=== PATIENT | male | born 1970 | race Caucasian/White ===

== ENCOUNTER 2017-08-09 13:33 | Emergency (ER) | payer MEDICAID ==
[~2017-08-09] VITALS: Ht 162.6 cm; Wt 75.0 kg
[~2017-08-09 13:33] MED LIST: TRAM50TA2 PO
[2017-08-09 13:40] VITALS: Ht 162.6 cm; Wt 75.0 kg
[2017-08-09] MEDS ORDERED: BACI28.34 TOP (14:38)
[2017-08-09] MEDS ORDERED: IBUP-1542 PO (14:38)
--- NOTE | 2017-08-09 18:51 | ERD ---
ER Documentation Chief Complaint Chief Complaint NOSE BLEED X3 DAYS HPI Patient is a 47-year-old male presenting to the emergency department with complaints of head to toe full body pain and epistaxis intermittently for the past 3 days. Body pain has been present intermittently for 2 weeks. He denies any focal chest pain or pressure, he denies shortness of breath with exertion, he denies dizziness, headaches, nausea, vomiting, diarrhea, and other symptoms currently. He is not actively bleeding from his nose currently. Symptoms are mild in severity. ROS All systems reviewed and are negative except as per history of present illness. Medications Home Meds Active Scripts Ibuprofen* (Motrin*) 600 Mg Tab, 600 MG PO Q6, #20 TAB Prov:YASIR ESTES PA-C 08/09/17 Bacitracin* (Bacitracin Zinc Oint*) 28.35 Gm Oint, 1 APPLIC TOP BID, #1 TUB APPLI TO Prov:YASIR ESTES PA-C 08/09/17 Tramadol HCl (Tramadol HCl) 50 Mg Tablet, 50 MG PO Q4 Y for PAIN, #20 TAB Prov:SOURAV SOARES 09/03/16 Allergies Allergies: Coded Allergies: No Known Drug Allergy (Verified Allergy, Unknown, 09/03/16) PMhx/Soc History of Surgery: No Anesthesia Reaction: No Hx Neurological Disorder: No Hx Respiratory Disorders: No Hx Cardiac Disorders: Yes (HTN) Hx Psychiatric Problems: No Hx Miscellaneous Medical Probl: Yes (torn right meniscus) Hx Alcohol Use: Yes (10 beers/day) Hx Substance Use: No Hx Tobacco Use: No Smoking Status: Never smoker Physical Exam Vitals Physical Exam Const: Nontoxic, well-appearing male in no acute distress. Head: Atraumatic Eyes: Normal Conjunctiva ENT: Normal External Ears, Nose and Mouth. Dried blood noted to the anterior nares bilaterally. No active bleeding currently. No bleeding noted to the posterior pharynx. Neck: Full range of motion..~ No meningismus. Resp: Clear to auscultation bilaterally Cardio: Regular rate and rhythm, no murmurs. There is some reproducible chest wall tenderness palpation noted to the left chest. Skin: No petechiae or rashes Back: No midline or flank tenderness Ext: No cyanosis, or edema Neur: Awake and alert Psych: Normal Mood and Affect Procedures/MDM 47-year-old male presents to the emergency department with complaints of head to toe body pain and epistaxis intermittently. There is some dried blood noted to the anterior nares bilaterally, no blood seen in the posterior pharynx. No active bleeding currently. Patient did have some reproducible chest pain to palpation, consistent with his full body pain. An EKG was obtained due to his complaints but there is no evidence of acute coronary ischemia. Patient's full body pain may be consistent with influenza, or non-concerning myalgias. The patient was advised to keep turbinates moist. He was given a prescription for bacitracin to apply. He was also given a prescription for ibuprofen for full body pain. No evidence for life-threatening pathology at time of discharge. Patient was stable for discharge with a prescription for ibuprofen and bacitracin. EKG: Reviewed by attending ED physician. Rate/Rhythm: Normal sinus rhythm with a rate of 96 bpm. QRS, ST, T-waves: No changes consistent w/ acute ischemia Impression: No evidence of ischemia or arrhythmia Pt/family in agreement with discharge plan/diagnosis. Pt/family advised to return immediately with any new or worsening symptoms. Follow-up with primary care physician within the next 1-2 days. Disclaimer: Inadvertent spelling and grammatical errors are likely due to EHR/ dictation software use and do not reflect on the overall quality of patient care. Also, please note that the electronic time recorded on this note does not necessarily reflect the actual time of the patient encounter. Departure Diagnosis: Primary Impression: Epistaxis Additional Impression: Myalgia Condition: Fair Patient Instructions: Epistaxis (Adult), Myalgias Referrals: [facility] () Usted se rojas hecho un examen mdico de control que le indica que no est en jaqui condicin que requiera tratamiento urgente en el Departamento de Emergencia. Un estudio ms profundo y el tratamiento de kirk condicin pueden esperar sin ningn riesgo hasta que usted sea atendida/o en el consultorio de kirk mdico o jaqui cl asha. Es responsabilidad suya arreglar jaqui grfifin para el seguimiento del arlen. MANEJO DE CONDICIONES NO URGENTES EN EL FUTURO 1) Si usted tiene un mdico de atencin primaria: Usted debera llamar a kirk mdico de atencin primaria antes de venir al departamento de emergencia. Despus de las horas de consultorio, kirk doctor o kirk asociado/a est disponible por telfono. El mdico o enfermero de gisselle en el servicio telefnico puede asesorarle por laya medio para atender el problema, o arlen contrario se puede programar jaqui griffin. 2) Si usted no tiene un mdico de atencin primaria: Llame al mdico o clnica de referencia que aparece abajo patrice las horas de consultorio para hacer jaqui griffin para que le vean. CLINICAS: [facility] [phone] [facility] [phone] [facility] [phone] [address] [facility] [phone] [address] [facility]. [facility] [phone] [address] [facility] [phone] [address] Additional Instructions: No mas mejor en 2-3 spence, regresar. Mas peor en 24 horas, regresear rapidamente. Ir a doctor primario en 1-2 spence. Usar instrucciones cuando mike medicamento. YASIR ESTES PA-C Aug 09, 2017 18:51
== END 2017-08-09 15:25 | disposition home or self-care (01) ==
LOC: FTE 13:33
DX: R04.0 Epistaxis (principal); M79.1 Myalgia; I10 Essential (primary) hypertension; R07.9 Chest pain, unspecified
CPT/HCPCS: 93005; Z7502

== ENCOUNTER 2017-12-12 17:36 | Emergency (ER) | END 2017-12-12 19:00 | disposition home or self-care (01) ==

== ENCOUNTER 2017-12-25 09:53 | Emergency (ER) | END 2017-12-25 13:09 | disposition home or self-care (01) ==

== ENCOUNTER 2018-02-28 07:34 | Emergency (ER) | END 2018-02-28 09:27 | disposition home or self-care (01) ==

== ENCOUNTER 2018-08-30 15:09 | Emergency (ER) | END 2018-08-30 17:49 | disposition home or self-care (01) ==

== ENCOUNTER 2019-01-24 09:23 | Emergency (ER) | payer MEDICAID ==
[~2019-01-24] VITALS: Ht 152.4 cm; Wt 79.8 kg
[~2019-01-24 09:23] MED LIST changes: +AMOX500C2 PO; +BACI28.34 TOP; +HYDR-4011 PO; +IBUP-1542 PO; +NAPR-985 PO; +POLY10DR BOTH EYES; +PROM5SYR2 PO
[2019-01-24 10:07] VITALS: Ht 152.4 cm; Wt 79.8 kg
[2019-01-24] MEDS ORDERED: FAMOTIDINE 20 MG INJ IV STA (11:03)
[2019-01-24] MEDS ORDERED: LIDOCAINE/MYLANTA 40 ML BTL PO STA (11:03)
[2019-01-24] MEDS ORDERED: AMLO5TAB4 PO (12:10)
[2019-01-24] MEDS ORDERED: METF-849 PO (12:10)
--- NOTE | 2019-01-24 12:17 | ERD ---
ER Documentation Chief Complaint Chief Complaint 1) LT EAR PAIN X1 WEEK 2) HTN (RAN OUT OF ANTI-HTN MEDS) 3) DYSURIA HPI During the patient's encounter translation services were utilized Language: English Source: In person 48-year-old gentleman history of hypertension who presents the emergency room with multiple different complaints over a 1-2-month timeframe. He states over the last 2 months he has been having elevated blood pressure and has been noncompliant with his medication for at least 1 month. He is occasionally everton cribing some mild discomfort and urinary frequency. He denies any fevers or chills. Occasionally is having chest discomfort that is nonexertional left- sided and slightly worse to touch. He described at triage left ear pain but denies any left ear pain currently. Patient states that he has been drinking alcohol more frequently. He denies any hematemesis or melena. He is concerned because he is feeling generally weak and would like to have an evaluation. ROS All systems reviewed and are negative except as per history of present illness. Medications Home Meds Active Scripts Amlodipine Besylate* (Norvasc*) 5 Mg Tablet, 5 MG PO DAILY for 30 Days, TAB Prov:THUAN ROSADO MD 01/24/19 Metformin* (Glucophage*) 500 Mg Tab, 500 MG PO BID for 30 Days, TAB Prov:THUAN ROSADO MD 01/24/19 Naproxen* (Naprosyn*) 500 Mg Tablet, 500 MG PO BID PRN for PAIN AND/OR INFLAMMATION, #30 TAB Prov:LYNN BOSCH NP 08/30/18 Hydrocodone/Acetaminophen ([place] 5-325 Tablet) 1 Each Tablet, 1 EACH PO Q6 for SEVERE PAIN LEVEL 7-10, #7 TAB Prov:VERNON ALEGRE DO 12/25/17 Polymyxin/Trimethoprim* (Polytrim* Eye Drops) 10 Ml Drops, 1 DROP BOTH EYES Q3H, #1 BOTTLE Prov:VERNON ALEGRE DO 12/25/17 Ibuprofen* (Motrin*) 600 Mg Tab, 600 MG PO Q8 PRN for PAIN AND OR ELEVATED TEMP, #12 TAB Prov:KAELYN PÉREZ MD 12/12/17 Promethazine HCl/Codeine (Prometh-Codein 6.25-10 mg/5 ml) 5 Ml Syrup, 5 ML PO BID for COUGH, #120 ML Prov:KAELYN PÉREZ MD 12/12/17 Amoxicillin* (Amoxicillin*) 500 Mg Cap, 500 MG PO TID for 7 Days, CAP Prov:KAELYN PÉREZ MD 12/12/17 Ibuprofen* (Motrin*) 600 Mg Tab, 600 MG PO Q6, #20 TAB Prov:YASIR ESTES PA-C 08/09/17 Bacitracin* (Bacitracin Zinc Oint*) 28.35 Gm Oint, 1 APPLIC TOP BID, #1 TUB APPLI TO Prov:YASIR ESTES PA-C 08/09/17 Tramadol HCl (Tramadol HCl) 50 Mg Tablet, 50 MG PO Q4 PRN for PAIN, #20 TAB Prov:SOURAV SOARES 09/03/16 Allergies Allergies: Coded Allergies: No Known Drug Allergy (Verified Allergy, Unknown, 12/12/17) PMhx/Soc History of Surgery: No Anesthesia Reaction: No Hx Neurological Disorder: No Hx Respiratory Disorders: No Hx Cardiac Disorders: Yes (HTN) Hx Psychiatric Problems: No Hx Miscellaneous Medical Probl: Yes (torn right meniscus, DM) Hx Alcohol Use: No (DRINKS "MANY" BEERS 5X/WEEK) Hx Substance Use: No Hx Tobacco Use: No Smoking Status: Never smoker FmHx Family History: No diabetes Physical Exam Vitals Vital Signs Date Temp Pulse Resp B/P (MAP) Pulse Ox O2 O2 Flow FiO2 Time Delivery Rate 01/24/19 68 17 175/105 96 Room Air 10:20 (128) 01/24/19 99.7 78 16 193/112 98 10:07 (139) Physical Exam General: Well developed, well nourished, no acute distress Head: Normocephalic, atraumatic. Eyes: Pupils equally reactive, EOM intact ENT: Moist mucous membranes Neck: Supple, no lymphadenopathy Respiratory: Lungs clear bilaterally, no distress Cardiovascular: RRR, no murmurs, rubs, or gallops Abdominal: Soft, non-tender, non-distended, no peritoneal signs : Deferred MSK: No edema, no unilateral swelling, 5/5 strength Neurologic: Alert and oriented, moving all extremities, normal speech, no focal weakness, no cerebellar signs Skin: No rash Psych: Normal mood Result Diagram: 01/24/19 1038 01/24/19 1038 Results 24 hrs Laboratory Tests Test 01/24/19 10:38 01/24/19 11:10 White Blood Count 8.4 10^3/ul Red Blood Count 4.99 10^6/ul Hemoglobin 14.9 g/dl Hematocrit 44.0 % Mean Corpuscular Volume 88.2 fl Mean Corpuscular Hemoglobin 29.9 pg Mean Corpuscular Hemoglobin Concent 33.9 g/dl Red Cell Distribution Width 13.2 % Platelet Count 138 10^3/UL Mean Platelet Volume 11.5 fl Immature Granulocytes % 0.200 % Neutrophils % 79.5 % Lymphocytes % 12.8 % Monocytes % 6.6 % Eosinophils % 0.4 % Basophils % 0.5 % Nucleated Red Blood Cells % 0.0 /100WBC Immature Granulocytes # 0.020 10^3/ul Neutrophils # 6.6 10^3/ul Lymphocytes # 1.1 10^3/ul Monocytes # 0.6 10^3/ul Eosinophils # 0.0 10^3/ul Basophils # 0.0 10^3/ul Nucleated Red Blood Cells # 0.0 10^3/ul Sodium Level 138 mmol/L Potassium Level 4.2 mmol/L Chloride Level 101 mmol/L Carbon Dioxide Level 25 mmol/L Anion Gap 12 Blood Urea Nitrogen 12 mg/dl Creatinine 0.50 mg/dl Est Glomerular Filtrat Rate mL/min > 60 mL/min Glucose Level 315 mg/dl Calcium Level 9.7 mg/dl Total Bilirubin 1.1 mg/dl Direct Bilirubin 0.00 mg/dl Indirect Bilirubin 1.1 mg/dl Aspartate Amino Transf (AST/SGOT) 198 IU/L Alanine Aminotransferase (ALT/SGPT) 134 IU/L Alkaline Phosphatase 239 IU/L Troponin I < 0.012 ng/ml Total Protein 9.4 g/dl Albumin 4.6 g/dl Globulin 4.80 g/dl Albumin/Globulin Ratio 0.95 Lipase 263 U/L Urine Color YELLOW Urine Clarity CLEAR Urine pH 8.0 Urine Specific [place] 1.030 Urine Ketones TRACE mg/dL Urine Nitrite NEGATIVE mg/dL Urine Bilirubin NEGATIVE mg/dL Urine Urobilinogen 2+ mg/dL Urine Leukocyte Esterase NEGATIVE Todd/ul Urine Hemoglobin NEGATIVE mg/dL Urine Glucose 3+ mg/dL Urine Total Protein NEGATIVE mg/dl Current Medications Medications Dose Sig/Silvia Start Time Status Last (Trade) Ordered Route PRN Stop Time Admin Dose Reason Admin Famotidine 20 mg ONCE STAT 01/24/19 DC 01/24/19 (Pepcid Iv) IV 11:03 01/24/19 11:15 11:11 40 ml ONCE STAT 01/24/19 DC 01/24/19 Miscellaneous PO 11:03 01/24/19 11:15 Medication 11:11 (Gi Cocktail (2)) Procedures/MDM EKG, MONITORS, & DIAGNOSTIC IMAGING: EKG: I reviewed and interpreted a 12-lead EKG. Rhythm: Normal sinus rhythm ST Changes: No contiguous ST segment elevations T waves: No contiguous T wave inversions Impression: No evidence of acute cardiac ischemia Chest x-ray: I reviewed and interpreted a 1 view of the chest Mediastinum: No enlargement Cardiac silhouette: No cardiomegaly Airspace: Clear lung taylor bilaterally without evidence of pneumothorax Bones: No evidence of fracture LAB INTERPRETATION: I reviewed the laboratory testing and it shows hyperglycemia without evidence of diabetic ketoacidosis with normal anion gap and a bicarb of 25. Mild thrombocytopenia, mild transaminitis. Negative troponin. MEDICAL DECISION MAKING: The patient's symptoms are very nonspecific and subacute. His symptoms have been present for at least 1 month if not longer. Patient describes chest pain that is non-specific, nonexertional and subacute without exacerbation today. His EKG and troponin are negative. I do not believe serial enzymes are ne cessary. The patient is describing some frequency. His laboratory testing shows evidence of hyperglycemia. Likely undiagnosed diabetes. No evidence of diabetic ketoacidosis. Scant ketones in the urine but no diagnostic criteria is met to require IV or subcutaneous insulin. The patient will be initiated on metformin. Patient does not recall blood pressure medication that he is supposed to be taking. ER COURSE: * Blood pressure improved in the emergency room setting to the 140 systolic. Samir bartholomew continues to be well-appearing without evidence of endorgan dysfunction. He has mild transaminitis likely secondary to his alcohol use * At this point the patient can be safely discharged. He needs to follow-up with a primary care physician. CONSULTATION: None DISPOSITION PLAN: The patient does not have an identifiable emergent medical condition that warrants inpatient hospitalization at this time. The patient is deemed safe for discharge with outpatient follow-up. We discussed follow up with the patient's primary care doctor within 24 to 48 hours as needed. We also discussed return to the emergency room for worsening symptoms or worsening condition. Outpatient referral: None required Discharge Medications: Metformin, Norvasc Departure Diagnosis: Primary Impression: Weakness Additional Impressions: Transaminitis Hyperglycemia Asymptomatic hypertension Condition: Stable Patient Instructions: Hyperglycemia (High Blood Sugar), High Blood Pressure (Hypertension), Generalized Weakness Referrals: [facility]) Usted se rojas hecho un examen mdico de control que le indica que no est en jaqui condicin que requiera tratamiento urgente en el Departamento de Emergencia. Un estudio ms profundo y el tratamiento de kirk condicin pueden esperar sin ningn riesgo hasta que usted sea atendida/o en el consultorio de kirk mdico o jaqui clnica. Es responsabilidad suya arreglar jaqui inessa para el seguimiento del arlen. MANEJO DE CONDICIONES NO URGENTES EN EL FUTURO 1) Si usted tiene un mdico de atencin primaria: Usted debera llamar a kirk mdico de atencin primaria antes de venir al departamento de emergencia. Despus de las horas de consultorio, kirk doctor o kirk asociado/a est disponible por telfono. El mdico o enfermero de gisselle en el servicio telefnico puede asesorarle por laya medio para atender el problema, o arlen contrario se puede programar jaqui inessa. 2) Si usted no tiene un mdico de atencin primaria: Llame al mdico o clnica de referencia que aparece abajo patrice las horas de consultorio para hacer jaqui inessa para que le vean. CLINICAS: [facility] [phone] [address] [facility] [phone] [facility] [phone] [address] [facility] [phone] [facility] 960 [phone] [address] [facility] [phone] [facility] () Arlene se rojas hecho un examen mdico de control que le indica que no est en jaqui condicin que requiera tratamiento urgente en el Departamento de Emergencia. Un estudio ms profundo y el tratamiento de kirk condicin pueden esperar sin ningn riesgo hasta que usted sea atendida/o en el consultorio de kirk mdico o jaqui clnica. Es responsabilidad suya arreglar jaqui inessa para el seguimiento del arlen. MANEJO DE CONDICIONES NO URGENTES EN EL FUTURO 1) Si usted tiene un mdico de atencin primaria: Usted debera llamar a kirk mdico de atencin primaria antes de venir al departamento de emergencia. Despus de las horas de consultorio, kirk doctor o kirk asociado/a est disponible por telfono. El mdico o enfermero de gisselle en el servicio telefnico puede asesorarle por laya medio para atender el problema, o arlen contrario se puede programar jaqui inessa. 2) Si usted no tiene un mdico de atencin primaria: Llame al mdico o condado institucions de referencia que aparece abajo patrice las horas de consultorio para hacer jaqui inessa para que le vean. SI USTED NO PUEDE PAGAR PARA JAYJAY UN MEDICO puede ir a: [facility] [address] [place] [address] [facility] [address] [place] [address] [facility] [address] [place] [address] [facility] [address] [place] [address] Additional Instructions: Llame al doctor nombrado abajo (Referral Sources) MAANA y magalys jaqui INESSA PARA DENTRO DE JAQUI SEMANA. Dgale a la secretaria que nosotros le instruimos hacer esta inessa.Avise o llame si kirk condicin se empeora antes de la inessa. THUAN ROSADO MD Jan 24, 2019 12:17
[2019-01-24 13:03] VITALS: BP 137/82; PULSE 72; RESP 17
== END 2019-01-24 13:00 | disposition home or self-care (01) ==
LOC: E/R 09:23
DX: E11.65 Type 2 diabetes mellitus with hyperglycemia (principal); R74.0 Nonspecific elevation of levels of transaminase and lactic acid dehydrogenase [LDH]; I10 Essential (primary) hypertension; R53.1 Weakness; Z76.0 Encounter for issue of repeat prescription
CPT/HCPCS: 36415; 71045; 80053; 81003; 83690; 84484; 85025; 93005; 96374; Z7502; Z7610

== ENCOUNTER 2019-05-14 20:31 | Emergency (ER) | payer SELFPAY ==
[~2019-05-14] VITALS: Ht 162.6 cm; Wt 83.0 kg
[~2019-05-14 20:31] MED LIST changes: +AMLO5TAB4 PO; +METF-849 PO
[2019-05-14 20:40] VITALS: BP 155/98; PULSE 88; RESP 18; Ht 162.6 cm; Wt 83.0 kg
== END 2019-05-14 22:29 | disposition left against medical advice (07) ==
LOC: E/R 20:31
DX: Z53.21 Procedure and treatment not carried out due to patient leaving prior to being seen by health care provider (principal)

== ENCOUNTER 2019-06-13 21:18 | Emergency (ER) | payer MEDICAID ==
[~2019-06-13] VITALS: Ht 162.6 cm; Wt 81.7 kg
[2019-06-13 21:35] VITALS: Ht 162.6 cm; Wt 81.7 kg
[2019-06-13] MEDS ORDERED: SOD CHLORIDE 0.9% 1,000 ML IV STA (22:03)
[2019-06-14 01:21] VITALS: BP 118/70; PULSE 78; RESP 16
== END 2019-06-14 01:22 | disposition home or self-care (01) ==
LOC: E/R 21:18
DX: R31.9 Hematuria, unspecified (principal); I10 Essential (primary) hypertension
CPT/HCPCS: 36415; 74176; 80053; 81001; 83690; 85025; 87086; J7030; Z7502; 81003

== ENCOUNTER 2019-08-05 18:51 | Emergency (ER) | payer MEDICAID ==
[~2019-08-05] VITALS: Ht 162.6 cm; Wt 78.0 kg
[~2019-08-05 18:51] MED LIST changes: +OMEP20CA17 PO; +ONDA4TAB14 PO
[2019-08-05 19:10] VITALS: Ht 162.6 cm; Wt 78.0 kg
[2019-08-05] MEDS ORDERED: morphine 4 MG/ML VIAL IV STA (20:41)
[2019-08-05] MEDS ORDERED: LACTATED RINGER'S 1,000 ML IV STA (20:41)
[2019-08-05] MEDS ORDERED: ONDANSETRON 4 MG INJ IV STA (20:41)
[2019-08-05] MEDS ORDERED: FAMOTIDINE 20 MG INJ IV ONE (21:00)
[2019-08-05] MEDS ORDERED: SOD CHLORIDE 0.9% 100 ML ONE (21:40)
[2019-08-05] MEDS ORDERED: IOHEXOL 300MG/ML 150 ML BTL ONE (21:40)
[2019-08-05 23:38] VITALS: BP 149/80; PULSE 82; RESP 16
== END 2019-08-05 23:40 | disposition home or self-care (01) ==
LOC: FTE 18:51
DX: K92.0 Hematemesis (principal); I10 Essential (primary) hypertension; E11.9 Type 2 diabetes mellitus without complications; Z79.84 Long term (current) use of oral hypoglycemic drugs
CPT/HCPCS: 36415; 71045; 74177; 80053; 81003; 83690; 84484; 85025; 85610; 85730; 93005; 96374; 96375; J2270; J2405; J7120; Q9967; Z7502; Z7610